=== PATIENT | female | born 1975 | race Caucasian/White ===

== ENCOUNTER 2023-03-29 15:09 | Outpatient (REF) | payer MEDICAID, SELFPAY ==
[2023-03-29 18:20] LABS: Alanine Aminotransferase 18 U/L (0-31); Albumin Level 4.1 g/dL (3.5-5.0); Alkaline Phosphatase 72 U/L (39-117); Aspartate Amino Transferase 23 U/L (5-31); Bilirubin Direct 0.1 mg/dL (0.0-0.5); Bilirubin Total 0.4 mg/dL (0.0-1.0)
[2023-03-30 04:08] LABS: HIV AB/AG Nonreactive (Nonreactive); HIV Num 1 0.05 S/CO (0.00-0.99)
[2023-03-30 04:21] LABS: ~HepC Num1 0.07 S/CO (0.00-0.79); ~Hepatitis C Antibody Nonreactive (Nonreactive)
== END 2023-03-29 15:10 | disposition home or self-care (01) ==
LOC: HO.CHCLDS 15:09
PROVIDERS: Visit Provider Family Medicine
DX: F11.20 Opioid dependence, uncomplicated (principal)
CPT/HCPCS: 36415; 80076; 86803; 87389

== ENCOUNTER 2024-09-01 13:38 | Outpatient (REF) | payer MEDICAID, SELFPAY ==
--- OUTSIDE RECORDS SUMMARY | 2024-09-01 15:22 | XMS_ITS | Encounter Summary ---
Author Organization [employer] Address [address] [facility] 7t [place] [address] Care Team Providers Care School Cleaner Name Role Phone Paris Cordero MD Primary Care Provider [phone] Reason for Visit * Reason Onset Date Comments Med Refill 08/17/2022 Encounter Details Date Type Department Care Team (Late st Contact Info) Description 08/17/2022 Telephone [facility] MEDICINE [address] [place] [address] Paris Cordero MD [address] [place] [address] Med Refill Social History Tobacco Use Types Packs/Day Years Used Date Smoking Tobacco: Never Assessed Comments Unknown Sex and Gender Information Value Date Recorded Sex Assigned at Female 06/08/2022 10:28 AM EDT Legal Sex Female 10:28 AM EDT Gender Identity Female 06/08/2022 10:28 AM EDT Sexual Orientation Lesbian or Thorpe 06/08/2022 10 :28 AM EDT COVID-19 Exposure Response Date Recorded In the last 10 days, have yo u been in contact with someone who was confirmed or suspected to have Coronavirus/COVID-19? No / Unsure 01/11/2023 10:47 AM EDT documented as of this encounter Miscellaneous Notes * Telephone Encounter - Karen Bradley - 08/17/2022 11:08 AM EST Tc from pt requesting a med refill for Aderrall 15 mg . Please contact at [phone] documented in this encounter Plan of Treatment Upcoming Encounters Date Type Department Care Team (Late st Contact Info) Description 10/09/2024 1:30 PM EST Office Visit [facility] MED & PEDS [address] [place] [address] Earl Gaffney MD [address] [place] [address] documented as of this encounter Visit Diagnoses Not on filedocumented in this encounter Care Teams School Cleaner Relationship Specialty Start Date End Date Paris Cordero MD [address] [place] [address] PCP - General Family Medicine 05/16/15 documented as of this encounter
--- OUTSIDE RECORDS SUMMARY | 2024-09-01 15:22 | XMS_ITS | Encounter Summary ---
Author Organization [employer] Address [address] [place] [address] 7t [place] [address] Care Team Providers Care Grain Combine Driver Name Role Phone Paris Cordero MD Primary Care Provider [phone] Reason for Referral * Consultation (Routine) - Closed Specialty Diagnoses / Procedures Referred By Contac t Referred To Contact Behavioral Health Diagnoses Opioid type dependence, continuous (CMS/HCC) Attention deficit hyperactivity disorder (ADHD), combined type Earl Gaffney MD [address] [place] [address] Phone: tel: fax: Referral ID Status Reason Start Date Expiration Date V isits Requested Visits Authorized [id number] Closed Specialty Services Required 08/14/2024 08/14/2025 1 1 Reason for Visit * Reason Comments OBAT F/U Encounter Details Date Type Department Care Team (Latest Contact Info) Description 08/14/2024 3:00 PM EST Clinical Support [facility] MED & PEDS [address] [place] [address] Trina Lemus RN Opioid type dependence, continuous (CMS/HCC); Attention deficit hyperactivity disorder (ADHD), combined type Social History Tobacco Use Types Packs/Day Years Used Date Smoking Tobacco: Every Day Cigarettes Passive Smoke Exposure: Never Smokeless Tobacco: Never Comments Unknown Sex and Gender Information Value Date Recorded Sex Assigned at Female 06/08/2022 10:28 AM EDT Legal Sex Female 10:28 AM EDT Gender Identity Female 06/08/2022 10:28 AM EDT Sexual Orientation Lesbian or Thorpe 06/08/2022 10 :28 AM EDT documented as of this encounter Progress Notes * Trina Lemus RN - 08/14/2024 3:00 PM EST Patient here today for Opioid Dependence RV. Patient on current Suboxone dose of 16/4 on a 8-week schedule. Pt has been in the program for 8 years 7 months. Induction date: 01/15/16. Patient reports taking medication as prescribed, no adverse effects. Patient not actively enrolled in Services, will connect with as needed. CHEMICAL CELL CHANGER reviewed by provider. Kept PCP 01/11/23 LFTs Completed 03/29/23 Hep A/B not immune (2018), Hep B #1 given 03/2023 COVID VACCINATED DEFERS PREP LAST VISIT 06/19/24 Utox pos BUP, AMP Negative all other substances Marti seen today for follow-up for opioid use disorder. Reports she has been up since 4 am and already drove a martha load to [place]. She does not need to move at this point, but is doing martha for [employer] materials. No concerns with her dose and not pursuing taper at this time. She continues to smoke cigarettes 5 cigs/day and does not perceive financial burden or health risk since she has family members in their 80's who smoke. She has tried Chantix in the past but felt nauseous and reports NRT hasn't worked for her. Made her aware of smoking cessation offerings at pharmacy and [facility]. Updated labs ordered. Defers continuing Hep B series and Hep A vaccination. This visit: 08/14/2024 UTOX: bup, amph Melissa endorses taking her bup consistently with no sfx and no withdrawals. 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 She has been on this for about a decade. She gets extremely tired toward the end of her shift, and is hoping to speak with a provider about something to help. Referral made to psychiatry. She is awake, alert and appears in a good mood. Plan: Suboxone dosing schedule of 16/4 mg daily and management of side effects reviewed. Recovery support, harm reduction (including Narcan), and behavioral health attendance reviewed. Appointment for 8 weeks given. Patient expressed understanding and agreement with continuing plan of care. This information has been disclosed to you from records protected by federal confidentiality rules (42 CFR Part 2). The federal rules prohibit you from making any further disclosure of information inthis record that identifies a patient as having or having had a substance use disorder either directly, by reference to publicly available information, or through verification of such identification by another person unless further disclosure is expressly permitted by the written consent of the individual whose information is being disclosed or as otherwise permitted by (see2.3.1). The federal rules restrict any use of the information to investigate or prosecute with regard to a crime any patient with a substance use disorder, except as provided at 2.12??(5) and 2.65. documented in this encounter Plan of Treatment Upcoming Encounters Date Type Department Care Team (Late st Contact Info) Description 10/09/2024 1:30 PM EST Office Visit [facility] MED & PEDS [address] [place] [address] Earl Gaffney MD [address] [place] [address] Scheduled Referrals Name Type Priority Associated Diagnoses Orde r Schedule Referral to Behavioral Health Psychiatry Outpatient Referral Routine Opioid type dependence, continuous (CMS/HCC) Attention deficit hyperactivity disorder (ADHD), combined type Expected: 08/14/2024 (Approximate), Expires: 08/14/2025 documented as of this encounter Procedures Procedure Name Priority Date/Time Associated Diagnosis Comments POCT ANNABEL-14 URINE DRUG SCREEN Routine 08/14/2024 2:56 PM EST Opioid type dependence, continuous (CMS/HCC) documented in this encounter Results * POCT ANNABEL-14 Urine Drug Screen (08/14/2024 2:56 PM EST) THC Negative Cocaine Screen, Urine Negative Opiate Screen, Urine Negative Methamphetamine Screen Urine Negative Amphetamine Screen, Urine Positive Benzodiazepines Screen, Urine Negative Barbiturate Screen, Urine Negative Methadone Screen, Urine Negative Buprenophine Screen, Urine Positive TCA, Urine Negative MDMA Urine Negative ng/mL Oxycodone Screen, Urine Negative Phencyclidine (PCP), Urine Negative Propoxyphene, Urine Negative Urine Urine specimen obtained by clean catch procedure / Unknown 08/14/2024 2:56 PM EST Earl Gaffney MD POINT OF CARE TEST ENTER/EDIT OR DERABLES Final Result documented in this encounter Visit Diagnoses Diagnosis Opioid type dependence, continuous (CMS/[facility]) Opioid type dependence, continuous Attention deficit hyperactivity disorder (ADHD), combined type documented in this encounter Care Teams Grain Combine Driver Relationship Specialty Start Date End Date Paris Cordero MD [address] [place] [address] PCP - General Family Medicine 05/16/15 documented as of this encounter
--- OUTSIDE RECORDS SUMMARY | 2024-09-01 15:22 | XMS_ITS | Encounter Summary ---
Author Organization [facility] [employer] Address [address] [place] [address] 7 [place] [address] Care Team Providers Care Sales Order Administrator Name Role Phone Paris Cordero MD Primary Care Provider [phone] Reason for Visit * Reason Onset Date Comments Med Refill 08/07/2024 Encounter Details Date Type Department Care Team (Late Contact Info) Description 08/07/2024 Refill [facility] MED [facility] PEDS [address] [place] [address] Rachel Fernandez, SADA [address] [place] [phone] Opioid dependence, uncomplicated (CMS/HCC) Social History Tobacco Use Types Packs/Day Years [...] AM EDT documented as of this encounter Plan of Treatment Upcoming Encounters Date Type Department Care Team (Late Contact Info) Description 10/09/2024 1:30 PM EST Office Visit [facility] [address] [place], [place] [phone] Earl Gaffney MD [address] [place] [address] documented as of this encounter Visit Diagnoses Diagnosis Opioid dependence, uncomplicated (CMS/HCC) documented in this encounter Care Teams Sales Order Administrator Relationship Specialty Start Date End Date Paris Cordero MD [address] [place] [address] PCP - General Family Medicine 05/16/15 documented as of this encounter
--- OUTSIDE RECORDS SUMMARY | 2024-09-01 15:22 | XMS_ITS | Encounter Summary ---
Author Organization [employer] Address [address] [facility] 7[address] [place] [address] Care Team Providers Care Mechanical Engineering Officer Name Role Phone Paris Cordero MD Primary Care Provider [phone] Encounter Details Date Type Department Care Team (Late Contact Info) Description 08/14/2022 Telephone [facility] MEDICINE [address] [place] [address] Paris Cordero MD [address] [place], [place] [phone] Social History Tobacco Use Types Packs/Day Years [...] suspected to have Coronavirus/COVID-19? No / Unsure 08/17/2022 2:40 PM EST documented as of this encounter Plan of Treatment Upcoming Encounters Date Type Department Care Team (Late Contact Info) Description 10/09/2024 1:30 PM EST Office Visit [facility] MED [facility] PEDS [address] [place], [place] [phone] Earl Gaffney MD [address] [place], [place] [phone] documented as of this encounter Visit Diagnoses Not on filedocumented in this encounter Care Teams Mechanical Engineering Officer Relationship Specialty Start Date End Date Paris Cordero MD [address] [place] [address] PCP - General Family Medicine 05/16/15 documented as of this encounter
--- OUTSIDE RECORDS SUMMARY | 2024-09-01 15:22 | XMS_ITS | Encounter Summary ---
Author Organization [employer] Address [address] [place] [address] [address] [place] [address] Care Team Providers Care Hydraulic Rockbreaker Operator Name Role Phone Paris Cordero MD Primary Care Provider [phone] Encounter Details Date Type Department Care Team (Latest Contact Info) Description 08/14/2024 Travel Social History Tobacco Use Types Packs/Day Years [...] Description 10/09/2024 1:30 PM EST Office Visit [facility] MED & PEDS [address] [place] [address] Earl Gaffney MD [address] [place] [address] documented as of this encounter Visit Diagnoses Not on filedocumented in this encounter Care Teams Hydraulic Rockbreaker Operator Relationship Specialty Start Date End Date Paris Cordero MD [address] [place] [address] PCP - General Family Medicine 05/16/15 documented as of this encounter
--- OUTSIDE RECORDS SUMMARY | 2024-09-01 15:22 | XMS_ITS | Encounter Summary ---
Author Organization [employer] Address [address] [facility] 7t [place] [address] Care Team Providers Care Console Manager Name Role Phone Paris Cordero MD Primary Care Provider Reason for Visit * Reason Onset Date Comments Med Refill 04/28/2023 Encounter Details Date Type Department Care Team (Late Contact Info) Description 04/28/2023 Telephone [facility] MEDICINE [address] [place] [address] Paris Cordero MD [address] [place] [address] Med Refill Social History Tobacco Use Types [...] * Telephone Encounter - Karen Bradley - 04/28/2023 11:10 AM EDT Tc from pt requesting a refill for amphetamine-dextroamphetamine XR (Adderall XR) 15 MG 24 hr capsule documented in this encounter Plan of Treatment Upcoming Encounters Date Type Department Care Team (Late Contact Info) Description 10/09/2024 1:30 PM EST Office Visit [facility] MED & PEDS [address] [place] [address] Earl Gaffney MD [address] [place] [address] documented as of this encounter Visit Diagnoses Not on filedocumented in this encounter Care Teams Console Manager Relationship Specialty Start Date End Date Paris Cordero MD [address] [place] [address] PCP - General Family Medicine 05/16/15 documented as of this encounter
--- OUTSIDE RECORDS SUMMARY | 2024-09-01 15:22 | XMS_ITS | Encounter Summary ---
Author Organization [employer] Address [address] [facility] 7t [place] [address] Care Team Providers Care Mapping Pilot Name Role Phone Paris Cordero MD Primary Care Provider [phone] Reason for Visit * Reason Onset Date Comments Medication Question 01/12/2023 Encounter Details Date Type Department Care Team ([facility] st Contact Info) Description 01/12/2023 Telephone [facility] MED & PEDS [address] [place], [place] [phone] Paris Cordero MD 505 [place] [address] Medication Question Social History Tobacco Use Types Packs/Day Years [...] encounter Miscellaneous Notes * Telephone Encounter - Wade Mcelroy RN - 01/12/2023 4:14 PM EDT Pt seen 01/11/23 for mild intermittent asthma. Per note, stable. Advised to stop smoking. Will forward below to PCP to review. Please advise. Thank you. * Telephone Encounter - Gisella Hayes - 01/12/2023 3:44 PM EDT Tc from pt requesting an asthma inhaler refill. policy writer sales did not see med on list . Pt States spoke with pcp on last visit . Please call to clarify . documented in this encounter Plan of Treatment Upcoming Encounters Date Type Department Care Team (Late st Contact Info) Description 10/09/2024 1:30 PM EST Office Visit [facility] MED & PEDS [address] [place] [address] Earl Gaffney MD [address] [place] [address] documented as of this encounter Visit Diagnoses Not on filedocumented in this encounter Care Teams Mapping Pilot Relationship Specialty Start Date End Date Paris Cordero MD [address] [place] [address] PCP - General Family Medicine 05/16/15 documented as of this encounter
--- OUTSIDE RECORDS SUMMARY | 2024-09-01 15:22 | XMS_ITS | Encounter Summary ---
Author Organization [employer] Address [address] [place] [address] 7t [place] [address] Care Team Providers Care Workforce Management Consultant Name Role Phone Paris Cordero MD Primary Care Provider [phone] Reason for Visit * Reason Onset Date Comments Med Refill 07/23/2023 Encounter Details Date Type Department Care Team (Late Contact Info) Description 07/23/2023 Telephone [facility] MEDICINE [address] [place] [address] Paris Cordero MD [address] [place] [address] Med Refill Social History Tobacco Use Types [...] encounter Miscellaneous Notes * Telephone Encounter - Kesha Allen - 07/23/2023 9:19 AM EST Tc from pt requesting med refill on; amphetamine-dextroamphetamine XR (Adderall XR) 15 MG 24 hr capsule documented in this encounter Plan of Treatment Upcoming Encounters Date Type Department Care Team (Late Contact Info) Description 10/09/2024 1:30 PM EST Office Visit [facility] MED & PEDS [address] [place] [address] Earl Gaffney MD [address] [place] [address] documented as of this encounter Visit Diagnoses Not on filedocumented in this encounter Care Teams Workforce Management Consultant Relationship Specialty Start Date End Date Paris Cordero MD [address] [place] [address] PCP - General Family Medicine 05/16/15 documented as of this encounter
--- OUTSIDE RECORDS SUMMARY | 2024-09-01 15:22 | XMS_ITS | Encounter Summary ---
Author Organization [employer] Address [address] [place] [address] 7t [place] [address] Care Team Providers Care Public Relations Specialist Name Role Phone Paris Cordero MD Primary Care Provider [phone] Reason for Visit * Reason Onset Date Comments Med Refill 05/27/2023 Encounter Details Date Type Department Care Team ([facility] st Contact Info) Description 05/27/2023 Refill [facility] MED & PEDS [address] [place] [address] Paris Cordero MD [address] [place] [address] Attention deficit hyperactivity disorder (ADHD), combined type [...] encounter Miscellaneous Notes * Telephone Encounter - Alissa Mcelroy - 05/27/2023 11:14 AM EDT C from pt requesting medication refill on amphetamine-dextroamphetamine XR (Adderall XR) 15 MG 24 hr capsule to be sent to [facility] - [place], [place] - [address] [facility] documented in this encounter Plan of Treatment Upcoming Encounters Date Type Department Care Team (Late st Contact Info) Description 10/09/2024 1:30 PM EST Office Visit [facility] MED & PEDS [address] [place] [address] Earl Gaffney MD [address] [place] [address] documented as of this encounter Visit Diagnoses Diagnosis Attention deficit hyperactivity disorder (ADHD), combined type documented in this encounter Care Teams Public Relations Specialist Relationship Specialty Start Date End Date Paris Cordero MD [address] [place] [address] PCP - General Family Medicine 05/16/15 documented as of this encounter
--- OUTSIDE RECORDS SUMMARY | 2024-09-01 15:22 | XMS_ITS | Encounter Summary ---
Author Organization [employer] Address [address] [place] [address] [address], [place] [address] Care Team Providers Care Records Administrator Name Role Phone Paris Cordero MD Primary Care Provider [phone] Reason for Referral * Medications - Closed Specialty Diagnoses / Procedures Referred By Contmelany t Referred To Contact Diagnoses Attention deficit hyperactivity disorder (ADHD), combined type Paris Cordero MD [address] [place] [address] Phone: tel: fax: Referral ID Status Reason Start Date Expiration Date Visits Re quested Visits Authorized [id number] Closed 08/10/2024 08/10/2025 1 1 Reason for Visit * Reason Onset Date Comments Med Refill 08/08/2024 Encounter Details Date Type Department Care Team ([facility] st Contact Info) Description 08/08/2024 Refill [facility] MED & PEDS [address] [place] [address] Paris Cordero MD [address] [place] [address] Attention deficit hyperactivity disorder (ADHD), combined type [...] encounter Miscellaneous Notes * Telephone Encounter - Gisella Hayes - 08/08/2024 12:14 PM EST TC from pt requesting medication refill. Medications needing refill : amphetamine-dextroamphetamine XR (Adderall XR) 15 MG 24 hr capsule To be sent to: [facility] - [place], [place] - [address] documented in this encounter Plan of Treatment Upcoming Encounters Date Type Department Care Team (Late st Contact Info) Description 10/09/2024 1:30 PM EST Office Visit [facility] MED & PEDS [address] [place] [address] Earl Gaffney MD [address] [place] [address] documented as of this encounter Visit Diagnoses Diagnosis Attention deficit hyperactivity disorder (ADHD), combined type documented in this encounter Care Teams Records Administrator Relationship Specialty Start Date End Date Paris Cordero MD [address] [place] [address] PCP - General Family Medicine 05/16/15 documented as of this encounter
--- OUTSIDE RECORDS SUMMARY | 2024-09-01 15:22 | XMS_ITS | Encounter Summary ---
Author Organization [employer] Address [address] [place] [address] [address] [place] [address] Care Team Providers Care Horse Race Starter Name Role Phone Paris Cordero MD Primary Care Provider [phone] Reason for Visit * Reason Comments Med Refill Encounter Details Date Type Department Care Team (Late Contact Info) Description 02/22/[address] [facility] MED & PEDS [address] [place] [address] Paris Cordero MD [address] [place] [address] Attention deficit hyperactivity disorder (ADHD), combined type [...] Description 10/09/2024 1:30 PM EST Office [facility] MED & PEDS [address] [place], [place] [phone] Earl Gaffney MD [address] [place] [address] documented as of this encounter Visit Diagnoses Diagnosis Attention deficit hyperactivity disorder (ADHD), combined type documented in this encounter Care Teams Horse Race Starter Relationship Specialty Start Date End Date Paris Cordero MD [address] [place] [address] PCP - General Family Medicine 05/16/15 documented as of this encounter
--- OUTSIDE RECORDS SUMMARY | 2024-09-01 15:23 | XMS_ITS | Encounter Summary ---
Author Organization [employer] Address [address] [place] [address] [place] [address] Care Team Providers Care Patent Attorney Name Role Phone Paris Cordero MD Primary Care Provider [phone] Encounter Details Date Type Department Care Team (Late Contact Info) Description 11/29/2023 Telephone [facility] MEDICINE [address] [place] [address] Paris Cordero MD [address] [place] [address] Social History Tobacco Use Types Packs/Day Years [...] Description 10/09/2024 1:30 PM EST Office Visit [facility] MED & PEDS [address] [place], [place] [phone] Earl Gaffney MD [address] [place] [address] documented as of this encounter Visit Diagnoses Not on filedocumented in this encounter Care Teams Patent Attorney Relationship Specialty Start Date End Date Paris Cordero MD [address] [place] [address], [place] [address] PCP - General Family Medicine 05/16/15 documented as of this encounter
--- OUTSIDE RECORDS SUMMARY | 2024-09-01 15:23 | XMS_ITS | Clinical Summary ---
Author Organization [employer] Address [address] [facility] 7t [place] [address] Care Team Providers Care Intensive Care Medicine Specialist Name Role Phone Paris Cordero MD Primary Care Provider [phone] Allergies No known active allergies Medications * This document contains information received from the source organization and may not represent a complete record from that organization. varenicline (Chantix) 0.5 MG tabletIndication s:Smoking addiction TAKE ONE TABLET BY MOUTH EVERY DAY FOR 3 DAYS THEN INCREASE TO ONE TABLET BY MOUTH TWICE DAILY FOR FOUR DAYS 11 tablet 023 Active varenicline (Chantix) 1 MG tablet take 1 tablet by oral route 2 times every day with a glass of water after meals 021 Active naloxone (Narcan) 2 MG/2ML injection use as directed 015 Active albuterol (2.5 MG/3ML) 0.083% nebulizer solution Take 3 mL by nebulization every 4 (four) hours if needed for wheezing. 75 mL 3 023 Active albuterol 108 (90 Base) MCG/ACT inhaler Inhale 2 puffs every 4 (four) hours if needed for wheezing. 18 g 023 Active amphetamine-dext roamphetamine XR (Adderall XR) 15 MG 24 hr capsuleIndicatio ns:Attention deficit hyperactivity disorder (ADHD), combined type TAKE ONE CAPSULE EVERY MORNING 30 capsule 024 Active Suboxone 2-0.5 MG per sublingual filmIndications: Opioid dependence, uncomplicated (CMS/HCC) Place 1 Film under the tongue Once per day. 28 Film 1 024 2024 Active Buprenorphine HCl-Naloxone HCl (Suboxone) 8-2 MG SL filmIndications: Opioid dependence, uncomplicated (CMS/HCC) Place 2 Film under the tongue Once per day. 56 Film 1 024 2024 Active amphetamine-dext roamphetamine XR (Adderall XR) 15 MG 24 hr capsuleIndicatio ns:Attention deficit hyperactivity disorder (ADHD), combined type TAKE ONE CAPSULE EVERY MORNING 30 capsule 025 Active amphetamine-dext roamphetamine XR (Adderall XR) 15 MG 24 hr capsuleIndicatio ns:Attention deficit hyperactivity disorder (ADHD), combined type TAKE ONE CAPSULE EVERY MORNING 30 capsule 024 2024 Discontinued(R eorder (will not trigger notification to Pharmacy)) Suboxone 2-0.5 MG per sublingual filmIndications: Opioid dependence, uncomplicated (CMS/HCC) Place 1 Film under the tongue Once per day. 28 Film 1 024 2023 Discontinued(R eorder (will not trigger notification to Pharmacy)) Buprenorphine HCl-Naloxone HCl (Suboxone) 8-2 MG SL filmIndications: Opioid dependence, uncomplicated (CMS/HCC) Place 2 Film under the tongue Once per day. 56 Film 1 024 2023 Discontinued(R eorder (will not trigger notification to Pharmacy)) Active Problems Problem Noted Date Diagnosed Date Bilateral leg edema 12/27/2022 Mild intermittent asthma 05/16/2015 Opioid abuse 05/16/2015 Encounters * This document contains information received from the source organization and may not represent a complete record from that organization. Date Type Department Care Team Description 08/14/2024 3:00 PM EST Clinical Support [facility] [address] [place] [address] Trina Lemus RN Opioid type dependence, continuous (CMS/HCC); Attention deficit hyperactivity disorder (ADHD), combined type 08/14/2024 Travel 08/08/2024 Refill [facility] [address] [place] [address] Paris Cordero MD Attention deficit hyperactivity disorder (ADHD), combined type 08/07/2024 Refill [facility] [address] [place] [address] Rachel Fernandez RN Opioid dependence, uncomplicated ([facility]) 07/04/2024 Refill [facility] [address] [place] [address] Paris Cordero MD Attention deficit hyperactivity disorder (ADHD), combined type 06/19/2024 3:30 PM EST Clinical Support [facility] [address] [place] [address] Rachel Fernandez RN Uncomplicated opioid dependence ([facility]) 06/19/2024 Travel 06/12/2024 Refill [facility] [address] [place] [address] Rachel Fernandez RN Opioid dependence, uncomplicated ([facility]) 06/02/2024 Refill [facility] [address] [place] [address] Paris Cordero MD Attention deficit hyperactivity disorder (ADHD), combined type from Last 3 Months Immunizations Name Administration Dates Next Due Hep B, adult 03/29/2023 Tdap 05/12/2016 Social History Tobacco Use Types Packs/Day Years Used Date Smoking Tobacco: Every Day Cigarettes Passive Smoke Exposure: Never Smokeless Tobacco: Never Tobacco Cessation:Ready to Q uit: Not Asked; Counseling Given: Not Answered Comments Unknown Sex and Gender Information Value Date Recorded Sex Assigned at Female 06/08/2022 10:28 AM EDT Legal Sex Female 10:28 AM EDT Gender Identity Female 06/08/2022 10:28 AM EDT Sexual Orientation Lesbian or Thorpe 06/08/2022 10 :28 AM EDT Last Filed Vital Signs Vital Sign Reading Time Taken Comments Blood Pressure 138/88 01/11/2023 11:06 AM EDT Pulse 76 01/11/2023 11:06 AM EDT Temperature 37.1 ??C (98.7 ??F) 01/11/2023 11:06 AM E DT Respiratory Rate 16 01/11/2023 11:06 AM EDT Oxygen Saturation 99% 12/22/2022 5:43 PM EDT Inhaled Oxygen Concentration - - Weight 85.7 kg (189 lb) 01/11/2023 11:06 AM EDT Height 154.9 cm (5' 1 ) 01/11/2023 11:06 AM EDT Body Mass Index 35.71 01/11/2023 11:06 AM EDT Plan of Treatment Upcoming Encounters Date Type Department Care Team (Late st Contact Info) Description 10/09/2024 1:30 PM EST Office Visit [facility] [address] [place] [address] Earl Gaffney MD [address] [place] [address] Health Maintenance Due Date Last Done Comments CT Colonography 1973 Colonoscopy 1973 Colorectal Cancer Screening 1973 Depression Screening 1973 FIT DNA/Cologuard 1973 FIT 1973 FOBT 1973 SDOH Screening 1973 Sigmoidoscopy 1973 Pneumococcal Vaccine: Pediatrics (0 to 5 Years) and At-Risk Patients (6 to 64 Years) (1 of 2 - PCV) 1979 Alcohol/Substance Use Screening 1985 Family Planning (PISQ) 1988 Hepatitis A Vaccines (1 of 2 - Risk 2-dose series) 1992 Pap Smear 1994 Cervical Cancer Screening 2003 HPV/Cotest 2003 Mammogram 2013 Zoster Vaccines (1 of 2) 2023 Hepatitis B Vaccines (2 of 3 - 19+ 3-dose series) 04/26/2023 03/29/2023 Tobacco Screening 12/23/2023 12/22/2022 COVID-19 Vaccine (3 - 2023-2 5 season) 2024 06/25/2021, 05/28/2021 Influenza Vaccine (#1) 2024 DTaP/Tdap/Td Vaccines (2 - T d or Tdap) 05/12/2026 05/12/2016 RSV Patients and Patients Aged 60 years or older (1 - 1-dose 75+ series) 2048 HIV Screening Completed 03/29/2023 Hepatitis C Screening Completed 03/29/2023 HIB Vaccines Aged Out No longer eligi ble based on patient's age to complete this topic HPV Vaccines Aged Out No longer eligi ble based on patient's age to complete this topic IPV Vaccines Aged Out No longer eligi ble based on patient's age to complete this topic Meningococcal Vaccine Aged Out No steve elisabet eligible based on patient's age to complete this topic RSV under 20 months Aged Out No longe r eligible based on patient's age to complete this topic Rotavirus Vaccines Aged Out No longer eligible based on patient's age to complete this topic Procedures Procedure Name Priority Date/Time Associated Diagnosis Comments POCT ANNABEL-14 URINE DRUG SCREEN Routine 08/14/2024 2:56 PM EST Opioid type dependence, continuous (CMS/HCC) POCT ANNABEL-14 URINE DRUG SCREEN Routine 06/19/2024 3:40 PM EST Uncomplicated opioid dependence (CMS/HCC) HEPATITIS C ANTIBODY REFLEX Routine 03/29/2023 3:15 PM EDT HIV ANTIBODY/ANTIGEN ([place] [facility]) Routine 03/29/2023 3:15 PM EDT from Last 3 Months or Most Recently Relevant to Health Maintenance Results * POCT ANNABEL-14 Urine Drug Screen (08/14/2024 2:56 PM EST) Only the most recent of2 resultswithin the time period is included. THC Negative Cocaine Screen, Urine Negative Opiate [...] CARE TEST ENTER/EDIT OR DERABLES Final Result * Hepatitis C Antibody Reflex (03/29/2023 3:15 PM EDT) Hepatitis C Antibody Nonreactive Nonreactive [facility] Comment:Antibodies to HCV no t detected; does not exclude early acuteHCV infection. 03/29/2023 3:15 PM EDT 03/29/2023 5:44 PM EDT Earl Gaffney MD LAB BLOOD ORDERABLES Final Resul t Performing Organization Address [facility] Co de Phone Number [facility] [address] [place] [phone] * HIV Ab/Ag ([facility]) (03/29/2023 3:15 PM EDT) HIV AB/AG Nonreactive Nonreactive [facility] Comment:HIV-1 p24 Ag and/or HIV-1/HIV-2 Ab not detected.A test result that is nonreactive does not exclude thepossibility of exposure to or infection with HIV-1 and/orHIV-2. Nonreactive results in this assay for individualswith prior exposure to HIV-1 and/or HIV-2 may be due toantigen and antibody levels that are below the limit ofdetection of this assay.The [employer] HIV Ag/Ab Combo assay result andsupplemental assay results should be interpreted inconjunction with the patient's clinical presentation,history and other laboratory results. If the results areinconsistent with clinical evidence, additional testing issuggested to confirm the result. 03/29/2023 3:15 PM EDT 03/29/2023 5:44 PM EDT Earl Gaffney MD LAB BLOOD ORDERABLES Final Resul t Performing Organization Address [facility] Co de Phone Number [facility] [address] [place] [phone] from Last 3 Months or Most Recently Relevant to Health Maintenance Insurance [facility] Care Teams Intensive Care Medicine Specialist Relationship Specialty Start Date End Date Paris Cordero MD [address] [place] [phone] PCP - General Family Medicine 05/16/15
[2024-09-01 15:49] LABS: Amphetamine Screen Urine POSITIVE (Not Detect); Barbiturates, Urine Not Detected (Not Detect); Benzodiazepines Screen Urine Not Detected (Not Detect); Buprenorphine Scr Positive (Not Detect); Cannabinoid Screen Urine Not Detected (Not Detect); Cocaine Screen Urine Not Detected (Not Detect); Fentanyl, urine Not Detected (Not Detect); Methadone Screen, Urine Not Detected (Not Detect); Opiate Screen Urine Not Detected (Not Detect); Oxycodone Screen Urine Not Detected (Not Detect); Phencyclidine Screen Urine Not Detected (Not Detect)
== END 2024-09-01 13:39 | disposition home or self-care (01) ==
LOC: HO.CHCLDS 13:38
PROVIDERS: Visit Provider Registered Nurse
DX: F11.10 Opioid abuse, uncomplicated (principal)
CPT/HCPCS: 80307

== ENCOUNTER 2025-05-07 13:25 | Outpatient (REF) | payer OTHER, SELFPAY ==
[2025-05-07 14:10] LABS: MANUAL DIFF FLAG NO
[2025-05-07 14:18] LABS: Hematocrit 42.1 % (37.0-47.0); Hemoglobin 14.2 g/dl (12.0-16.0); Imm Gran Abs Auto 0.03 X10*3/uL (0.00-0.03); Imm Gran Pct Auto 0.4 % (0.0-0.4); Lymphocytes Absolute Auto 1.8 X10*3/uL (1.2-4.9); Mean Corpuscular HGB Conc 33.7 g/dl (31.0-35.0); Mean Corpuscular Hemoglobin 30.7 pg (27.0-33.0); Mean Corpuscular Volume 90.9 fL (80.0-98.0); NRBC Abs Auto 0.000 X10*3/uL (0.0-0.012); NRBC Pct Auto 0.0 /100WBC (0.0-0.2); Platelet Count 258 X10*3/uL (160-400); Red Blood Count 4.63 X10*6/uL (4.20-5.50); White Blood Count 7.4 X10*3/uL (4.8-10.8)
--- OUTSIDE RECORDS SUMMARY | 2025-05-07 14:30 | XMS_ITS | Encounter Summary ---
Author Organization [employer] Address [address] [place] [address] 7 [place] [address] Care Team Providers Care Media Associate Name Role Phone Maddie Yates CNP Primary Care Provider [phone] Reason for Visit * Reason Comments OBAT F/U Encounter Details Date Type Department Care Team ([facility] st Contact Info) Description 05/07/2025 2:30 PM EDT Office Visit [facility] [address] [place] [address] Earl Gaffney MD [address] [place] [address] Opioid type dependence, continuous (CMS/HCC) (Primary Dx) Social History Tobacco Use Types Packs/Day Years Used Date Smoking Tobacco: Every Day Cigarettes Passive Smoke Exposure: Never Smokeless Tobacco: Never Depression Answer Date Recorded Patient Health Questionnaire-9 Score 0 04/03/2025 Patient Health Questionnaire-9 Score 0 04/03/2025 Last PHQ-9: Questionnaire Data Not on file 0 04/03/2025 Housing Stability Answer Date Recorded What is your housing situation today? I have santosh whitlock 04/03/[address] you li ve. Do you have problems with any of the following? None of the above 04/03/2025 Food Insecurity Answer Date Recorded Within the past 12 months, y ou worried that your food would run out before you got money to buy more: Never True 04/03/2025 Within the past 12 months,th e food you bought just didn't last and you didn't have enough money to get more: Never True Transportation Answer Date Recorded In the past 12 months, has l ack of transportation kept you from medical appts, meetings, work or from getting things needed for daily living? No 04/03/2025 Utilities Answer Date Recorded In the past 12 months, has t he electric, gas, oil or water company threatened to shut off services in your home? No 04/03/2025 Depression Answer Date Recorded Patient Health Questionnaire-2 Score 0 04/03/2025 Internet Access Answer Date Recorded Internet Access Q1 Yes 04/03/2025 Internet Access Q2 Not on file 04/03/2025 Comments Unknown Sex and Gender Information Value Date Recorded Sex Assigned at Female 06/08/2022 10:28 AM EDT Legal Sex Female 10:28 AM EDT Gender Identity Female 06/08/2022 10:28 AM EDT Sexual Orientation Lesbian or Thorpe 06/08/2022 10 :28 AM EDT documented as of this encounter Progress Notes * Earl Gaffney MD - 05/07/2025 2:30 PM EDT Patient here today for Opioid Dependence RV. Patient on current Suboxone dose of 16/4 on a 8-week schedule. Pt has been in the program for 9 years 3 months. Induction date: 01/15/16. Patient reports taking medication as prescribed, no adverse effects. Patient not actively enrolled in Services, will connect with as needed. SERVICE ELECTRICIAN reviewed by provider. Last PCP appointment 04/03/2025 LFTs Completed 03/29/2023 (ordered by new PCP) Hep A/B not immune (2019), Hep B #1 given 03/2023 COVID VACCINATED DEFERS PREP LAST VISIT 03/26/2025 Marti came in very early for her appointment. She had the day off of work so that she could come to this appointment, she said. She was especially excited today because she has a new granddaughter named Martha. Martha lives with her dad, Marti's son, who also lives with Marti. Martha is there one week and at her mother's the next week. Marti is very happy about this. She denies any medicalissues, and said she plans to get her labs drawn after this appointment. She said that her dose of bup is working well without any side effects. Marti denies any constipation issues because she said she eats a lot of fruits and vegetables. She has been with us for more than nine years and may be a candidate for 12-week visits. 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 The patient is not nervous/anxious. Physical Exam Constitutional: Appearance: Normal appearance. Pulmonary: Effort: Pulmonary effort is normal. Neurological: Mental Status: She is alert. Psychiatric: Mood and Affect: Mood normal. Behavior: Behavior normal. Marti was seen today for obat f/u . Diagnoses and all orders for this visit: Opioid type dependence, continuous ([facility]) (Primary) - POCT ANNABEL-14 Urine Drug Screen Patient presents for a routine OUD OBAT visit Discussed treatment options for opioid dependence Patient is tolerating current treatment of Buprenorphine/Naloxone SL Discussed behavioral modification and accessing services Counseling provided with a focus on support system, tools for achieving/maintaining recovery Reviewed barriers for these goals Discussed strategies to address when faced situations that may trigger use Continue with current visit schedule Narcan use discussed [place] Reviewed risk assessment for family planning, STI and PrEP Follow up in 8 weeks This information has been disclosed to you [...] Care Team (Late st Contact Info) Description 07/02/2025 2:45 PM EST Office Visit [facility] [address] [place] [address] Earl Gaffney MD [address] [place], [place] [phone] documented as of this encounter Goals Goal Patient Goal Type Associated Problems Recent Progress Patient-Stated? Author Increase coping skills to promote long-term recovery and improve ability to perform daily activities General On track( 025 1:24 PM EDT) No Trina Lemus, RN documented as of this encounter Procedures Procedure Name Priority Date/Time Associated Diagnosis Comments POCT ANNABEL-14 URINE DRUG SCREEN Routine 05/07/2025 1:14 PM EDT Opioid type dependence, continuous ([facility]) documented in this encounter Results * (ABNORMAL) POCT ANNABEL-14 Urine Drug Screen (05/07/2025 1:14 PM EDT) THC Negative Negative Cocaine Screen, Urine Negative Negative Opiate Screen, Urine Negative Negative Methamphetamine Screen Urine Negative Negative Amphetamine Screen, Urine Positive(A) Negative Benzodiazepines Screen, Urine Negative Negative Barbiturate Screen, Urine Negative Negative Methadone Screen, Urine Negative Negative Buprenophine Screen, Urine Positive(A) Negative TCA, Urine Negative Negative MDMA Urine Negative Negative ng/mL Oxycodone Screen, Urine Negative Negative Phencyclidine (PCP), Urine Negative Negative Fentanyl, Urine Negative Negative Urine Urine specimen obtained by clean catch procedure / Unknown 05/07/2025 1:14 PM EDT us Earl Gaffney MD POINT OF CARE TEST ENTER/EDIT OR DERABLES Final Result documented in this encounter Visit Diagnoses Diagnosis Opioid type dependence, continuous (CMS/HCC) (HCC)- Primary Opioid type dependence, continuous documented in this encounter Additional Health Concerns Assessment Noted Time PHQ-9 Depression Total Score: 0 04/03/20 12:51 PM EDT documented as of this encounter Care Teams Media Associate Relationship Specialty Start Date End Date Maddie Yates CNP PCP - General Family Medicine 03/30/25 documented as of this encounter
--- OUTSIDE RECORDS SUMMARY | 2025-05-07 14:57 | XMS_ITS | Encounter Summary ---
Author Organization [employer] Address [address] [facility] 7t [place] [address] Care Team Providers Care Lung Splitter Name Role Phone Milan Manolonicole ALDANA Primary Care Provider [phone] Reason for Visit * Reason Onset Date Comments Med Refill 05/02/2025 Encounter Details Date Type Department Care Team (Late st Contact Info) Description 05/02/2025 Refill [facility] [address] [place] [address] Trina Lemus, SADA Opioid dependence, uncomplicated ([facility]) Social History Tobacco Use Types Packs/Day Years [...] Description 07/02/2025 2:45 PM EST Office Visit [facility] [address] [place] [address] Earl Gaffney MD [address] [place] [address] documented as of this encounter Goals Goal Patient Goal Type Associated Problems Recent Progress Patient-Stated? Author Increase coping skills to promote long-term recovery and improve ability to perform daily activities General On track( 025 1:24 PM EDT) Trina Rodriguez, RN documented as of this encounter Visit Diagnoses Diagnosis Opioid dependence, uncomplicated (CMS/HCC) (HCC) documented in this encounter Additional Health Concerns Assessment Noted Time PHQ-9 Depression Total Score: 0 04/03/20 12:51 PM EDT documented as of this encounter Care Teams Lung Splitter Relationship Specialty Start Date End Date Maddie Yates CNP PCP - General Family Medicine 03/30/25 documented as of this encounter
--- OUTSIDE RECORDS SUMMARY | 2025-05-07 14:57 | XMS_ITS | Encounter Summary ---
Author Organization [employer] Address [address] [place] [address] 7 [place] [address] Care Team Providers Care Television Announcer Name Role Phone MilanMaddie KATYA Primary Care Provider [phone] Reason for Visit * Reason Comments Med Refill Encounter Details Date Type Department Care Team (Late Contact Info) Description 03/28/2025 Refill [facility] [address] [place] [address] Paris Cordero MD [address] [place] [address] Attention deficit hyperactivity disorder (ADHD), combined type [...] Department Care Team (Late Contact Info) Description 07/02/2025 2:45 PM EST Office Visit [facility] [address] [place] [address] Earl Gaffney MD [address] [place] [address] documented as of this encounter Goals Goal Patient Goal Type Associated Problems Recent Progress Patient-Stated? Author Increase coping skills to promote long-term recovery and improve ability to perform daily activities General On track( 025 1:24 PM EDT) Trina Rodriguez RN documented as of this encounter Visit Diagnoses Diagnosis Attention deficit hyperactivity disorder (ADHD), combined type documented in this encounter Care Teams Television Announcer Relationship Specialty Start Date End Date Maddie Yates CNP PCP - General Family Medicine 03/30/25 documented as of this encounter
--- OUTSIDE RECORDS SUMMARY | 2025-05-07 14:57 | XMS_ITS | Encounter Summary ---
Author Organization [employer] Address [address] [place] [address] Care Team Providers Care Environmental Science Technician Name Role Phone Paris Cordero MD Primary Care Provider [phone] Maddie Yates CNP Primary Care Provider [phone] Reason for Visit * Reason Comments Med Refill Encounter Details Date Type Department Care Team (Late Contact Info) Description 02/22/2023 Refill [facility] [address] [place] [address] Paris Cordero MD [address] [place] [address] Attention deficit hyperactivity disorder (ADHD), combined type [...] Description 07/02/2025 2:45 PM EST Office Visit [facility] [address] [place] [address] Earl Gaffney MD [address] [place] [address] [phone] documented as of this encounter Visit Diagnoses Diagnosis Attention deficit hyperactivity disorder (ADHD), combined type documented in this encounter Care Teams Environmental Science Technician Relationship Specialty Start Date End Date Paris Cordero MD [address] [place] [address] PCP - General Family Medicine 05/16/15 03/14/25 Maddie Yates CNP [address] [place] [address] PCP - General Family Medicine 03/30/25 documented as of this encounter
--- OUTSIDE RECORDS SUMMARY | 2025-05-07 14:57 | XMS_ITS | Encounter Summary ---
Author Organization [employer] Address [address] [place] [address] 7 [place] [address] Care Team Providers Care Sports Media Name Role Phone MilanMaddie KATYA Primary Care Provider [phone] Reason for Visit * Reason Comments Med Refill Encounter Details Date Type Department Care Team (Late Contact Info) Description 03/27/2025 Refill [facility] [address] [place] [address] Paris Cordero MD [address] [place] [address] Attention deficit hyperactivity disorder (ADHD), combined type [...] Description 07/02/2025 2:45 PM EST Office Visit [facility] [address] [place] [address] Earl Gaffney MD [address] [place] [address] documented as of this encounter Goals Goal Patient Goal Type Associated Problems Recent Progress Patient-Stated? Author Increase coping skills to promote long-term recovery and improve ability to perform daily activities General On track( 025 1:24 PM EDT) Trina Rodriguez RN documented as of this encounter Visit Diagnoses Diagnosis Attention deficit hyperactivity disorder (ADHD), combined type documented in this encounter Care Teams Sports Media Relationship Specialty Start Date End Date Maddie Yates CNP PCP - General Family Medicine 03/30/25 documented as of this encounter
--- OUTSIDE RECORDS SUMMARY | 2025-05-07 14:57 | XMS_ITS | Encounter Summary ---
Author Organization [employer] Address [address] [facility] 7t [place] [address] Care Team Providers Care Nurse Anesthesia Program Director Name Role Phone Milan Manolonicole ALDANA Primary Care Provider [phone] Encounter Details Date Type Department Care Team (Latest Contact Info) Description 05/07/2025 Travel Social History Tobacco Use Types Packs/Day [...] Description 07/02/2025 2:45 PM EST Office Visit [facility] MED & PEDS [address] [place] [address] Earl Gaffney MD 230 [place] [address] documented as of this encounter Goals Goal Patient Goal Type Associated Problems Recent Progress Patient-Stated? Author Increase coping skills to promote long-term recovery and improve ability to perform daily activities General On track( 025 1:24 PM EDT) Trina Rodriguez RN documented as of this encounter Visit Diagnoses Not on filedocumented in this encounter Additional Health Concerns Assessment Noted Time PHQ-9 Depression Total Score: 0 04/03/20 25 12:51 PM EDT documented as of this encounter Care Teams Nurse Anesthesia Program Director Relationship Specialty Start Date End Date Maddie Yates CNP PCP - General Family Medicine 03/30/25 documented as of this encounter
--- OUTSIDE RECORDS SUMMARY | 2025-05-07 14:57 | XMS_ITS | Encounter Summary ---
Author Organization [employer] Address [address] [place] [address] 7 [place] [address] Care Team Providers Care Applications Support Lead Name Role Phone Paris Cordero MD Primary Care Provider [phone] Maddie Yates CNP Primary Care Provider [phone] Encounter Details Date Type Department Care Team ([facility] Contact Info) Description 11/29/2023 Telephone [facility] MEDICINE 230 [place] [address] Paris Cordero MD 505 [place] [address] Social History Tobacco Use Types Packs/Day Years [...] Upcoming Encounters Date Type Department Care Team ([facility] Contact Info) Description 07/02/2025 2:45 PM EST Office Visit [facility] CHC MED & PEDS [address] [place], [place] [phone] Earl Gaffney MD [address] [place], [place] [phone] documented as of this encounter Visit Diagnoses Not on filedocumented in this encounter Care Teams Applications Support Lead Relationship Specialty Start Date End Date Paris Cordero MD [address] [place] [address] PCP - General Family Medicine 05/16/15 03/14/25 Maddie Yates CNP [address] [place] [address] PCP - General Family Medicine 03/30/25 documented as of this encounter
--- OUTSIDE RECORDS SUMMARY | 2025-05-07 14:57 | XMS_ITS | Encounter Summary ---
Author Organization [employer] Address [address] [place] [address] 7 [place] [address] Care Team Providers Care Horticultural Services Supervisor Name Role Phone Paris Cordero MD Primary Care Provider [phone] Maddie Yates CNP Primary Care Provider [phone] Reason for Visit * Reason Onset Date Comments Med Refill 07/23/2023 Encounter Details Date Type Department Care Team ([facility] Contact Info) Description 07/23/2023 Telephone [facility] MEDICINE [address] [place] [address] Paris Cordero MD [address] [place] [address] Med Refill Social History Tobacco Use Types [...] Upcoming Encounters Date Type Department Care Team ([facility] Contact Info) Description 07/02/2025 2:45 PM EST Office Visit [facility] CHC MED & PEDS [address] [place] [address] Earl Gaffney MD [address] [place] [address] documented as of this encounter Visit Diagnoses Not on filedocumented in this encounter Care Teams Horticultural Services Supervisor Relationship Specialty Start Date End Date Paris Cordero MD [address] [place] [address] PCP - General Family Medicine 05/16/15 03/14/25 Maddie Yates CNP [address] [place] [address] PCP - General Family Medicine 03/30/25 documented as of this encounter
--- OUTSIDE RECORDS SUMMARY | 2025-05-07 14:57 | XMS_ITS | Clinical Summary ---
Author Organization [employer] Address [address] [facility] 7t [place] [address] Care Team Providers Care Preschool Lead Teacher Name Role Phone Maddie Yates CNP Primary Care Provider [phone] Allergies No known active allergies Medications * This document contains information received from the source organization and may not represent a complete record from that organization. naloxone (Narcan) 2 MG/2ML injection use as directed 015 Active albuterol (2.5 MG/3ML) 0.083% nebulizer solution Take 3 mL by nebulization every 4 (four) hours if needed for wheezing. 75 mL 3 023 Active amphetamine-dext roamphetamine (Adderall) 10 MG tabletIndication s:Attention deficit hyperactivity disorder (ADHD), combined type Take 1 tablet (10 mg) by mouth 2 times daily. 60 tablet 025 Active albuterol 108 (90 Base) MCG/ACT inhalerIndicatio ns:Attention deficit hyperactivity disorder (ADHD), combined type Inhale 2 puffs every 4 (four) hours if needed for wheezing. 18 g 025 2025 Active Suboxone 2-0.5 MG per sublingual filmIndications: Opioid dependence, uncomplicated (CMS/HCC) ([facility]) Place 1 Film under the tongue Once per day. Do not start before May 07, 2025. 28 Film 1 025 2024 Active Buprenorphine HCl-Naloxone HCl (Suboxone) 8-2 MG SL filmIndications: Opioid dependence, uncomplicated (CMS/HCC) ([facility]) Place 2 Film under the tongue Once per day. Do not start before May 07, 2025. 56 Film 1 025 2024 Active Suboxone 2-0.5 MG per sublingual filmIndications: Opioid dependence, uncomplicated (CMS/HCC) (HCC) Place 1 Film under the tongue Once per day. Do not start before March 26, 2025. 28 Film 1 025 2024 Discontinued(R eorder (will not trigger notification to Pharmacy)) Buprenorphine HCl-Naloxone HCl (Suboxone) 8-2 MG SL filmIndications: Opioid dependence, uncomplicated (CMS/HCC) (HCC) Place 2 Film under the tongue Once per day. Do not start before March 26, 2025. 56 Film 1 025 2024 Discontinued(R eorder (will not trigger notification to Pharmacy)) Active Problems Problem Noted Date Diagnosed Date Attention deficit hyperactivity disorder (ADHD) 10/02/2024 Bilateral leg edema 12/27/2022 Mild intermittent asthma 05/16/2015 Opioid abuse 05/16/2015 Encounters * This document contains information received from the source organization and may not represent a complete record from that organization. Date Type Department Care Team Description 05/07/2025 2:30 PM EDT Office Visit [facility] MED & PEDS [address] [place] [address] Earl Gaffney MD Opioid type dependence, continuous (CMS/HCC) (Primary Dx) 05/07/2025 Refill [facility] MED & PEDS [address] [place] [address] Maddie Yates CNP Attention deficit hyperactivity disorder (ADHD), combined type 05/07/2025 Travel 05/02/2025 Refill [facility] MEDICINE [address] [place] [address] Trina Lemus, SADA Opioid dependence, uncomplicated (CMS/HCC) 04/11/2025 Telephone [facility] MEDICINE [address] [place] [address] Misbah Orta RN 04/03/2025 10:45 AM EDT Office Visit [facility] MED & PEDS [address] [place] [address] Maddie Yates CNP Encounter to establish care (Primary Dx); Attention deficit hyperactivity disorder (ADHD), combined type; Tobacco use; Dietary counseling; Exercise counseling; Class 1 obesity due to excess calories with body mass index (BMI) of 34.0 to 34.9 in adult, unspecified whether serious comorbidity present; Mild intermittent asthma, unspecified whether complicated 04/03/2025 Travel 04/02/2025 Telephone [facility] MED & PEDS [address] [place] [address] Maddie Yates CNP chart prep 04/02/2025 Telephone [facility] MED & PEDS [address] [place] [address] Maddie Yates CNP chart prep 03/30/2025 Telephone [facility] MED & PEDS [address] [place] [address] Maddie Yates CNP 03/28/2025 Telephone [facility] MEDICINE [address] [place] [address] Paris Cordero MD Med Refill 03/28/2025 Refill [facility] MED & PEDS [address] [place] [address] Paris Cordero MD Attention deficit hyperactivity disorder (ADHD), combined type 03/27/2025 Refill [facility] MED & PEDS [address] [place] [address] Paris Cordero MD Attention deficit hyperactivity disorder (ADHD), combined type 03/26/2025 1:15 PM EDT Clinical Support [facility] MED & PEDS [address] [place] [address] Trina Lemus RN Opioid type dependence, continuous ([facility]) 03/26/2025 Travel 03/23/2025 Refill [facility] MEDICINE [address] [place] [address] Trina Lemus RN Opioid dependence, uncomplicated ([facility]) 02/28/2025 Refill [facility] MED & PEDS [address] [place] [address] Paris Cordero MD Attention deficit hyperactivity disorder (ADHD), combined type 02/19/2025 Refill [facility] MED & PEDS [address] [place] [address] Paris Cordero MD from Last 3 Months Immunizations Immunization Administration Dates Next Due Hep B, adult 03/29/2023 Tdap 05/12/2016 Social History Tobacco Use Types Packs/Day Years Used Date Smoking Tobacco: Every Day Cigarettes Passive Smoke Exposure: Never Smokeless Tobacco: Never Tobacco Cessation:Ready to Q uit: Not Asked; Counseling Given: Not Answered Depression Answer Date Recorded Patient Health Questionnaire-9 [...] Sign Reading Time Taken Comments Blood Pressure 130/89 04/03/2025 11:25 AM EDT Pulse 82 04/03/2025 10:50 AM EDT Temperature 36.8 C (98.2 F) 04/03/2025 10:40 AM EDT Respiratory Rate 20 04/03/2025 10:40 AM EDT Oxygen Saturation 98% 04/03/2025 10:40 AM EDT Inhaled Oxygen Concentration - - Weight 82.6 kg (182 lb) 04/03/2025 10:40 AM EDT Height 154.9 cm (5' 1 ) 04/03/2025 10:40 AM EDT Body Mass Index 34.39 04/03/2025 10:40 AM EDT Plan of Treatment Upcoming Encounters Date Type Department Care Team (Late st Contact Info) Description 07/02/2025 2:45 PM EST Office Visit [facility] CHC MED & PEDS [address] [place], [place] [phone] Earl Gaffney MD [address] [place] [address] Health Maintenance Due Date Last Done Comments CT Colonography 1973 Colonoscopy 1973 Colorectal Cancer Screening 1973 FIT DNA/Cologuard 1973 FIT 1973 FOBT 1973 Lipid Panel 1973 Sigmoidoscopy 1973 Family Planning (PISQ) 1988 Pneumococcal Vaccine: 50+ Years (1 of 2 - PCV) 1992 Pap Smear 1994 Cervical Cancer Screening 2003 HPV/Cotest 2003 Mammogram 2013 Zoster Vaccines (1 of 2) 2023 Hepatitis B Vaccines (2 of 3 - 19+ 3-dose series) 04/26/2023 03/29/2023 COVID-19 Vaccine (3 - 2024-2 6 season) 2025 06/25/2021, 05/28/2021 Influenza Vaccine (#1) 2025 Alcohol/Substance Use Screening 04/03/2026 04/03/2025 Depression Screening 04/03/2026 04/03/2025, 04/03/2025 Disability Screening 04/03/2026 04/03/2025 SDOH Screening 04/03/2026 04/03/2025 Tobacco Screening 04/03/2026 04/03/2025 DTaP/Tdap/Td Vaccines (2 - T d or [...] on patient's age to complete this topic Hepatitis A Vaccines Aged Out No long er eligible based on patient's age to complete this topic IPV Vaccines Aged Out No longer eligi ble based on patient's age to complete this topic Meningococcal B Vaccine Aged Out No l onger eligible based on patient's age to complete this topic Meningococcal Vaccine Aged Out No steve elisabet eligible based on patient's age to complete this topic RSV under 20 months Aged Out No longe r eligible based on patient's age to complete this topic Rotavirus Vaccines Aged Out No longer eligible based on patient's age to complete this topic Goals Goal Patient Goal Type Associated Problems Recent Progress Patient-Stated? Author Increase coping skills to promote long-term recovery and improve ability to perform daily activities General On track( 025 1:24 PM EDT) No Trina Lemus RN Procedures Procedure Name Priority Date/Time Associated Diagnosis Comments CBC WITH AUTO DIFFERENTIAL Routine 05/07/2025 1:27 PM EDT Encounter to establish care POCT ANNABEL-14 URINE DRUG SCREEN Routine 05/07/2025 1:14 PM EDT Opioid type dependence, continuous (CMS/HCC) HEPATITIS C ANTIBODY REFLEX Routine 03/29/2023 3:15 PM EDT HIV ANTIBODY/ANTIGEN ([place] DPH) Routine 03/29/2023 3:15 PM EDT from Last 3 Months or Most Recently Relevant to Health Maintenance Results * CBC auto differential (05/07/2025 1:27 PM EDT) White Blood Count 7.4 4.8 - 10.8 X10*3/uL [facility] Red Blood Count 4.63 4.20 - 5.50 X10*6/uL [facility] Hemoglobin 14.2 12.0 - 16.0 g/dl [facility] Hematocrit 42.1 37.0 - 47.0 % [facility] Mean Corpuscular Volume 90.9 80.0 - 98.0 fL [facility] Mean Corpuscular Hemoglobin 30.7 27.0 - 33.0 pg [facility] Mean Corpuscular HGB Conc 33.7 31.0 - 35.0 g/dl [facility] Red Cell Distribution Width 13.0 11.0 - 16.0 % [facility] Platelet Count 258 160 - 400 X10*3/uL [facility] Mean Platelet Volume 10.2 9.4 - 12.3 fL [facility] Neutrophils Percent Auto 65.0 45 - 73 % [facility] Imm Gran Pct Auto 0.4 0.0 - 0.4 % [facility] Lymphocytes Percent Auto 24.3 20 - 40 % [facility] Monocytes Percent Auto 7.8 2 - 11 % [facility] Eosinophils Percent Auto 1.8 0 - 4 % [facility] Basophils Percent Auto 0.7 0 - 2 % [facility] NRBC Pct Auto 0.0 0.0 - 0.2 /100WBC [facility] Neutrophils Absolute Auto 4.8 2.0 - 8.3 x10*3/uL [facility] Imm Gran Abs Auto 0.03 0.00 - 0.03 X10*3/uL [facility] Lymphocytes Absolute Auto 1.8 1.2 - 4.9 X10*3/uL [facility] Monocytes Absolute Auto 0.6 0.1 - 1.2 X10*3/uL [facility] Eosinophils Absolute Auto 0.1 0.0 - 0.4 X10*3/uL [facility] Basophils Absolute Auto 0.1 0.0 - 0.2 X10*3/uL [facility] NRBC Abs Auto 0.000 0.0 - 0.012 X10*3/uL [facility] Blood Venous blood specimen / Unknown 05/07/2025 1:27 PM EDT 05/07/2025 2:07 PM EDT Maddie Yates CNP LAB BLOOD ORDERABLES Tanna l Result Performing Organization Address [facility] [address]/[facility] Co de Phone Number [facility] [address] [place] [address] [phone] * (ABNORMAL) POCT ANNABEL-14 Urine Drug Screen (05/07/2025 1:14 PM EDT) Pathologist [facility] THC Negative Negative Cocaine Screen, Urine Negative [...] procedure / Unknown 05/07/2025 1:14 PM EDT Earl Gaffney MD POINT OF CARE TEST ENTER/EDIT OR DERABLES Final Result * Hepatitis C Antibody Reflex (03/29/2023 3:15 PM EDT) [facility] Hepatitis C Antibody Nonreactive Nonreactive [facility] Comment:Antibodies to HCV no t detected; does not exclude early acuteHCV infection. 03/29/2023 3:15 PM EDT 03/29/2023 5:44 PM EDT Earl Gaffney MD LAB BLOOD ORDERABLES Final Resul t Performing Organization Address [facility] [address]/ZIP Co de Phone Number [facility] [address] [place] [phone] * HIV Ab/Ag ([place] DPH) (03/29/2023 3:15 PM EDT) [facility] HIV AB/AG Nonreactive Nonreactive [facility] Comment:HIV-1 p24 Ag and/or HIV-1/HIV-2 Ab not detected.A test result that is nonreactive does not exclude thepossibility of exposure to or infection with HIV-1 and/orHIV-2. Nonreactive results in this assay for individualswith prior exposure to HIV-1 and/or HIV-2 may be due toantigen and antibody levels that are below the limit ofdetection of this assay.The [employer] Computer Operator HIV Ag/Ab Combo assay result andsupplemental assay results should be interpreted inconjunction with the patient's clinical presentation,history and other laboratory results. If the results areinconsistent with clinical evidence, additional testing issuggested to confirm the result. 03/29/2023 3:15 PM EDT 03/29/2023 5:44 PM EDT us Earl Gaffney MD LAB BLOOD ORDERABLES Final Resul t [facility] [address] [place] [phone] from Last 3 Months or Most Recently Relevant to Health Maintenance [place] [address] [address] [address] Care Teams Preschool Lead Teacher Relationship Specialty Start Date End Date Maddie Yates CNP PCP - General Family Medicine 03/30/25
--- OUTSIDE RECORDS SUMMARY | 2025-05-07 14:57 | XMS_ITS | Encounter Summary ---
Author Organization [employer] Address [address] [place] [address] 7 [place] [address] Care Team Providers Care Grinder Mill Operator Name Role Phone Paris Cordero MD Primary Care Provider [phone] Maddie Yates CNP Primary Care Provider [phone] Reason for Visit * Reason Onset Date Comments Medication Question 01/12/2023 Encounter Details Date Type Department Care Team ([facility] st Contact Info) Description 01/12/2023 Telephone [facility] CH[facility] MED & PEDS [address] [place] [address] Paris Cordero MD [address] [place] [address] Medication Question Social History Tobacco Use Types [...] from pt requesting an asthma inhaler refill. jingle writer did not see med on list . Pt States spoke with pcp on last visit . Please call to clarify . documented in this encounter Plan of Treatment Upcoming Encounters Date Type Department Care Team (Late st Contact Info) Description 07/02/2025 2:45 PM EST Office Visit [facility] MED & PEDS [address] [place] [address] Earl Gaffney MD [address] [place] [address] documented as of this encounter Visit Diagnoses Not on filedocumented in this encounter Care Teams Grinder Mill Operator Relationship Specialty Start Date End Date Paris Cordero MD [address] [place] [address] PCP - General Family Medicine 05/16/15 03/14/25 Maddie Yates CNP [address] [place] [address] PCP - General Family Medicine 03/30/25 documented as of this encounter
--- OUTSIDE RECORDS SUMMARY | 2025-05-07 14:57 | XMS_ITS | Encounter Summary ---
Author Organization [employer] Address [address] [place] [address] 7 [place] [address] Care Team Providers Care Scale And Skip Car Operator Name Role Phone Maddie Yates CNP Primary Care Provider [phone] Reason for Visit * Reason Comments Med Refill Encounter Details Date Type Department Care Team ([facility] Contact Info) Description 05/07/2025 Refill [facility] CHC MED & PEDS [address] [place], [place] [phone] Maddie Yates CNP [address] [place] [address] Attention deficit hyperactivity disorder (ADHD), combined type [...] Description 07/02/2025 2:45 PM EST Office Visit [facility] CH[facility] MED & PEDS [address] [place] [address] Earl Gaffney MD [address] [place] [address] documented as of this encounter Goals Goal Patient Goal Type Associated Problems Recent Progress Patient-Stated? Author Increase coping skills to promote long-term recovery and improve ability to perform daily activities General On track( 025 1:24 PM EDT) No Trina Lemus RN documented as of this encounter Visit Diagnoses Diagnosis Attention deficit hyperactivity disorder (ADHD), combined type documented in this encounter Additional Health Concerns Assessment Noted Time PHQ-9 Depression Total Score: 0 04/03/20 12:51 PM EDT documented as of this encounter Care Teams Scale And Skip Car Operator Relationship Specialty Start Date End Date Maddie aYtes CNP PCP - General Family Medicine 03/30/25 documented as of this encounter
--- OUTSIDE RECORDS SUMMARY | 2025-05-07 14:57 | XMS_ITS | Encounter Summary ---
Author Organization [employer] Address [address] [place] [address] 7 [place] [address] Care Team Providers Care Tourism Radio Presenter Name Role Phone Paris Cordero MD Primary Care Provider [phone] Maddie Yates CNP Primary Care Provider [phone] Reason for Visit * Reason Onset Date Comments Med Refill 05/27/2023 Encounter Details Date Type Department Care Team ([facility] st Contact Info) Description 05/27/2023 Refill [facility] MED & PEDS [address] [place] [address] Paris Cordero MD [address] [place] [address] Attention deficit hyperactivity disorder (ADHD), combined type [...] 24 hr capsule to be sent to [facility] [place], [place] - [address] documented in this encounter Plan of Treatment Upcoming Encounters Date Type Department Care Team (Late st Contact Info) Description 07/02/2025 2:45 PM EST Office Visit [facility] MED & PEDS [address] [place] [address] Earl Gaffney MD [address] [place] [address] documented as of this encounter Visit Diagnoses Diagnosis Attention deficit hyperactivity disorder (ADHD), combined type documented in this encounter Care Teams Tourism Radio Presenter Relationship Specialty Start Date End Date Paris Cordero MD [address] [place] [phone] PCP - General Family Medicine 05/16/15 03/14/25 Maddie Yates CNP [address] [place] [address] PCP - General Family Medicine 03/30/25 documented as of this encounter
--- OUTSIDE RECORDS SUMMARY | 2025-05-07 14:57 | XMS_ITS | Encounter Summary ---
Author Organization [employer] Address [address] [place] [address] 7 [place] [address] Care Team Providers Care Construction Manager Name Role Phone Paris Cordero MD Primary Care Provider [phone] Maddie Yates CNP Primary Care Provider [phone] Encounter Details Date Type Department Care Team (Late Contact Info) Description 12/25/[address] [facility] MEDICINE [address] [place] [address] Trina Lemus, SADA Social History Tobacco Use Types Packs/Day Years [...] Description 07/02/2025 2:45 PM EST Office Visit [facility]C MED & PEDS [address] [place] [address] Earl Gaffney MD [address] [place] [address] documented as of this encounter Visit Diagnoses Not on filedocumented in this encounter Care Teams Construction Manager Relationship Specialty Start Date End Date Paris Cordero MD [address] [place] [address] PCP - General Family Medicine 05/16/15 03/14/25 Maddie Yates CNP [address] [place] [address] PCP - General Family Medicine 03/30/25 documented as of this encounter
--- OUTSIDE RECORDS SUMMARY | 2025-05-07 14:57 | XMS_ITS | Encounter Summary ---
Author Organization [employer] Address [address] [place] [address] 7 [place] [address] Care Team Providers Care Curriculum Manager Name Role Phone Paris Cordero MD Primary Care Provider [phone] Maddie Yates CNP Primary Care Provider [phone] Encounter Details Date Type Department Care Team ([facility] Contact Info) Description 08/14/2022 Telephone [facility] MEDICINE [address] [place], [place] [phone] Paris Cordero MD [address] [place], [place] [phone] Social History Tobacco Use Types Packs/Day Years [...] Upcoming Encounters Date Type Department Care Team ([facility] Contact Info) Description 07/02/2025 2:45 PM EST Office Visit [facility] MED & PEDS [address] [place], [place] [phone] Earl Gaffney MD [address] [place] [address] documented as of this encounter Visit Diagnoses Not on filedocumented in this encounter Care Teams Curriculum Manager Relationship Specialty Start Date End Date Paris Cordero MD [address] [place] [address] PCP - General Family Medicine 05/16/15 03/14/25 Maddie Yates CNP [address] [place] [address] PCP - General Family Medicine 03/30/25 documented as of this encounter
[2025-05-07 18:11] LABS: Alanine Aminotransferase 24 U/L (0-31); Albumin Level 4.3 g/dL (3.5-5.0); Alkaline Phosphatase 70 U/L (39-117); Anion Gap 11 (12-20); Aspartate Amino Transferase 30 U/L (5-31); Blood Urea Nitrogen 19 mg/dL (9-16); Calcium 9.5 mg/dL (8.4-10.2); Carbon Dioxide 28 mmol/L (22-29); Chloride 105 mmol/L (96-108); Cholesterol 183 mg/dL (<200); Estimated Glomerular Filt Rate 57; HDL Cholesterol 42 mg/dL (>40); Potassium 4.4 mmol/L (3.3-5.1); Sodium 140 mmol/L (135-145); Total Protein 7.0 g/dL (6.5-8.0); Triglycerides 129 mg/dL (<150)
[2025-05-08 05:25] LABS: HBS Num1 2.80 mIU/mL (0-7.99); HBc Num1 0.06 S/CO (0.00-0.79); HBsAGNum1 0.33 S/CO (0.00-0.99); HIV Num 1 0.06 S/CO (0.00-0.99); Hepatitis B Surface Antigen Negative (Negative); ~HepC Num1 0.09 S/CO (0.00-0.79); ~Hepatitis B Surface Antibody NONREACTIVE (Nonreactive); ~Hepatitis C Antibody Nonreactive (Nonreactive)
== END 2025-05-07 13:26 | disposition home or self-care (01) ==
LOC: HO.CHCLDS 13:25
DX: Z11.4 Encounter for screening for human immunodeficiency virus [HIV] (principal); Z11.59 Encounter for screening for other viral diseases; Z76.89 Persons encountering health services in other specified circumstances
CPT/HCPCS: 36415; 80053; 80061; 84443; 85025; 86704; 86706; 86803; 87340; 87389